=== PATIENT | female | born 1940 | race Caucasian/White ===

== ENCOUNTER → 2017-09-14 | Outpatient (CLI) | payer OTHER | END | disposition home or self-care (01) | LOC: C.LABSPEC 17:37 | PROVIDERS: ATTEND Obstetrics & Gynecology | DX: N94.9 Unspecified condition associated with female genital organs and menstrual cycle (principal); R39.9 Unspecified symptoms and signs involving the genitourinary system ==

== ENCOUNTER 2021-12-20 10:12 | Inpatient (IN) ==
[2021-12-20] MEDS ORDERED: SODIUM CHLORIDE 0.9% 500 ML IV STA (10:52)
--- NOTE | 2021-12-20 11:11 | XRay Report ---
XR chest 1V portable CLINICAL HISTORY: Dyspnea. COMPARISON STUDY: No previous studies for comparison. TECHNIQUE: 1 view of the chest FINDINGS: Single frontal view of the chest demonstrates the cardiomediastinal silhouette to be within normal li mits. The lungs are clear of alveolar opacities. There is no evidence for pleural effusion. There is no evidence for vascular congestion. There is no acute osseous pathology. IMPRESSION: 1. No acute cardiopulmonary disease. ACT 112: Negative or not required by law. Electronically signed by: Livan Johnston M.D. 12/20/2021 11:08 AM
[2021-12-20 11:19] LABS: Basophils # (auto) 0.04 K/uL (0-0.2); Basophils % (auto) 0.6 %; Eosinophils # (auto) 0.02 K/uL (0-0.50); Eosinophils % (auto) 0.3 %; Hematocrit (blood only) 33.6 % (34.1-44.9); Hemoglobin 11.5 g/dl (12.0-16.0); Immature Granulocytes # (auto) 0.03 K/uL (0.00-0.02); Immature Granulocytes % (auto) 0.4 %; Lymphocytes % (auto) 14.4 %; Mean Corpuscular Hemoglobin 27.3 pg (25.0-34.0); Mean Corpuscular Hgb Conc 34.2 g/dL (32.0-36.0); Mean Corpuscular Volume 79.8 fL (80.0-100.0); Mean Platelet Volume 10.3 fL (9.4-12.3); Monocytes # (auto) 0.62 K/uL (0.24-0.82); Monocytes % (auto) 8.9 %; Neutrophils # (auto) 5.23 K/uL (1.4-6.5); Neutrophils % (auto) 75.4 %; Platelet Count 319 K/uL (130-400); RDW Coefficient of Variation 12.1 % (11.5-14.5); RDW Standard Deviation 34.6 fL (36.4-46.3); Red Blood Count 4.21 M/uL (3.93-5.22); White Blood Count 6.94 K/ul (4.8-10.8)
[2021-12-20 11:50] LABS: Appearance Urine Clear (Clear); Bacteria Urine Automated 4+ (Negative); Bilirubin Urine Negative (Negative); Blood Urine Negative (Negative); Color Urine Yellow; Epithelial Cell Urine Auto >30 /lpf (0-5); Glucose Urine UA Negative (Negative); Ketones Urine Trace (Negative); Leukocyte Esterase Urine 2+ (Negative); Nitrite Urine Positive (Negative); Protein Urine Negative (Negative); RBC Urine Automated 0-4 /hpf (0-4); Specific Gravity Urine 1.008 (1.000-1.030); Urobilinogen Urine Negative (Negative); pH Urine 6.5 (4.5-7.5)
[2021-12-20 11:56] LABS: Albumin Globulin Ratio 1.4 (0.9-2); Albumin Level 4.2 gm/dl (3.4-5.0); BUN Creatinine Ratio 13.4 (10-20); Bilirubin,Total 0.8 mg/dl (0.2-1.0); Calcium 9.9 mg/dl (8.5-10.1); Creatinine Clr Calc Pharmacy 44.1 ml/min; Est GFR (African American) 77.8 ml/min; Est GFR (Non-African American) 67.1 ml/min; Magnesium 1.7 mg/dl (1.7-2.4); Potassium 3.6 mmol/L (3.5-5.1); Total Protein 7.2 gm/dl (6.0-8.3)
[2021-12-20 12:01] LABS: Troponin I High Sensitivity 10.8 pg/ml (0-14)
[2021-12-20] MEDS ORDERED: cefTRIAXone SODIUM 2,000 MG/70 ML BAG IV STA (12:21)
--- NOTE | 2021-12-20 13:07 | History & Physical Report ---
Date of Service December 20, 2021 Assessment & Plan (1) Hyponatremia: Plan: This is an 81-year-old female with PMH of renovascular hypertension, dyslipidemia, neuropathy and other medical problems as below who presents with fatigue, generalized weakness and nausea for the past 4 days and was found to have hyponatremia and UTI. Sodium of 121 on admission -> improved to 124 after 500ml NSS given in ED Recent OP labwork with NA of 127 in late November and Lyrica was discontinued with hopes of improvement Poor PO intake per family with lack of appetite and 3 6oz glasses of water daily Hypotonic, hypovolemic hyponatremia - serum osm 259, urine osm 245, urine sodium pending Discussed with Dr. Gomez of nephrology, recommends NSS @ 75ml/hr and repeat BMP at 1900 Daily BMP. Goal correction of Na to 127 in first 24hr (2) Urinary tract infection: Plan: UA abnormal. Continue empiric Rocephin. Follow urine cultures (3) Shortness of breath: Plan: ? In setting of hyponatremia, infection. Oxygen saturation 100% on room air. CXR normal. No tachycardia or tachypnea recorded. Will order D-dimer, follow- up with CTA for PE evaluation if elevated (4) Renovascular hypertension: Plan: Given missed dose of lisinopril. Continue to monitor with goal BP less than 140/90 (5) Neuropathy: Plan: Previously on Lyrica and Cymbalta, but both have been discontinued due to side effects DVT Ppx: SQ Lovenox Code status: FULL PCP: Jeremy Dispo: Admitted to PCU Patient seen in collaboration with Dr. Baer. Please see addendum. Plan Attending Addendum: care coordinated with DOROTA Eastman please refer to her notes for full details, I agree with her notes patient seen and examined, records reviewed by myself as well on exam, patient seen resting in bed, states she feels weak, has some mild dyspnea no other symptoms VS noted and reviewed oriented x3, not in distress, speaks in sentences with no effort nor accessory muscle use normal rate, regular rhythm, no murmurs clear breath sounds bilaterally non distended, soft, nontender no bipedal edema, erythema, warmth no neuro deficits All labs noted and imagings reviewed ASSESSMENT AND PLAN Hyponatremia, likely hypovolemic from poor intake Sodium 121 Serum osmolality, urine osmolality and urine sodium ordered Analog Ic Design Engineer consulted IV NSS ordered Shortness of breath Saturating well on room air, clear breath sounds bilaterally, chest x-ray: No acute process D-dimer 1160 CT angio ordered to rule out PE other diagnoses and plan of care as per DOROTA Eastman's notes Homar Baer MD History of Present Illness Chief Complaint: Malaise Primary Care Provider: Woodrow Luna DO This is an 81-year-old female with PMH of renovascular hypertension, dyslipidemia, neuropathy and other medical problems as below who presents with fatigue, generalized weakness and nausea for the past 4 days. Patient was seen at the end of November with sodium found to be 127 and Lyrica was discontinued with the hopes that it would improve. Patient was then started on Cymbalta for neuropathy but developed nausea, lack of appetite and rash 4 days ago and has felt sick ever since. Patient stopped taking medication. Rash has resolved but patient continues to have decreased appetite with poor p.o. intake at home, per and son at bedside. Patient reportedly drinking about 3 glasses of water per day. Also endorsing shortness of breath that does not seem to be worse with exertion. Denies any fever or chills. No congestion, headache, chest pain, palpitations, wheezing, vomiting, abdominal pain, dysuria, diarrhea or constipation. Allergies Allergy/AdvReac Type Severity Reaction Status Date / Time ciprofloxacin [From Cipro] Allergy Weakness Verified 12/20/21 11:12 duloxetine Allergy Rash Verified 12/20/21 11:12 sulfamethoxazole Allergy Weakness Verified 12/20/21 11:12 [From Bactrim] trimethoprim [From Bactrim] Allergy Weakness Verified 12/20/21 11:12 Home Medications Medication Instructions Recorded Confirmed Type capsaicin 0.1 % topical cream 1 applic topical BID 12/20/21 12/20/21 History dicyclomine 10 mg capsule 10 mg PO QID PRN Abdominal 12/20/21 12/20/21 History Discomfort dorzolamide 22.3 mg-timolol 6.8 1 drp ophthalmic (eye) [facility] 12/20/21 12/20/21 History mg/mL eye drops furosemide 20 mg tablet 20 mg PO DAILY PRN Edema 12/20/21 12/20/21 History lisinopril 10 mg tablet 10 mg PO DAILY 12/20/21 12/20/21 History omeprazole 20 mg capsule,delayed 20 mg PO DAILY 12/20/21 12/20/21 History release zinc 25 mg tablet 25 mg PO DAILY 12/20/21 12/20/21 History Past Med/Surg History Medical History (Updated 12/20/21 @ 16:54 by Tato Gomez MD) Dyslipidemia Neuropathy Prediabetes Renovascular hypertension Surgical History History of tonsillectomy Family History (Updated 12/20/21 @ 15:14 by Winsome Eastman PA-C) Other Heart disease Social History Smoking Status: Former smoker Tobacco Type: Cigarettes Smoking End Date: 1978; Hx Alcohol Use: Yes Alcohol Intake Frequency: Monthly or Less Hx Substance Use: No Preferred Language: German Communication Ability: Effective Senior It Recruiter Required: No Beliefs That Will Affect Care: None Current Living Situation: Spouse Other Information That Helps Us Care for You: No Feels Safe at Home: Yes Safety Concerns: Feels Safe At This Time Assistive Devices: Glasses Review of Systems Review of Systems: At least ten systems reviewed and negative except as noted in the HPI. Physical Exam Physical Exam: General Appearance: WD/WN, vitals as above, NAD, sitting up in bed, anxious Head: normocephalic, atraumatic Eyes: normal inspection, PERRL, conjunctivae normal, anicteric sclerae ENT: external ear and nose normal, dry mucous membranes of oropharynx Neck: normal visual inspection, trachea midline, no thyromegaly Respiratory: normal respiratory effort, lungs clear to auscultation, no wheeze, rales, rhonchi. No accessory muscle use Cardiovascular: regular rate, rhythm, no murmur, normal peripheral pulses, no BLE edema. Vessels: no JVD Chest: normal inspection of chest Abdomen/GI: normal bowel sounds, soft, nontender, no hepatosplenomegaly Extremities/Musculoskeletal: no cyanosis or clubbing, extremities motor streng th 09/10 Neurologic: PERRL, EOMI, accommodation nl, no face palsy, no dysarthria, CN's II-XI intact bilaterally and moves all extremities Psychiatric: A+Ox3, anxious Skin: no rashes, normal color, warm/dry Results & Data Results & Data ([place]) Vital Signs (Past 12 Hours) Vital Signs Temp Pulse Pulse Resp BP BP Pulse Ox 12/20/21 12:30 82 18 167/98 H 99 12/20/21 11:34 81 20 182/88 H 98 12/20/21 10:52 99 12/20/21 10:52 12/20/21 10:38 74 20 181/107 H 99 12/20/21 10:37 99 12/20/21 10:20 36.9 C 76 24 166/88 H 97 O2 Del Method 12/20/21 12:30 Room Air 12/20/21 11:34 Room Air 12/20/21 10:52 Room Air 12/20/21 10:52 Room Air 12/20/21 10:38 Room Air 12/20/21 10:37 Room Air 12/20/21 10:20 Room Air Laboratory Results Short CBC 12/20/21 Range/Units 10:49 WBC 6.94 (4.8-10.8) K/ul Hgb 11.5 L (12.0-16.0) g/dl Hct 33.6 L (34.1-44.9) % Plt Count 319 (130-400) K/uL BMP 12/20/21 12/20/21 10:49 14:48 Sodium 121 L 124 L Potassium 3.6 3.4 L Chloride 89 L 92 L Carbon Dioxide 24 23 BUN 11 8 Creatinine 0.82 0.65 Glucose 136 H 112 H Calcium 9.9 9.2 Liver Function 12/20/21 Range/Units 10:49 Total Bilirubin 0.8 (0.2-1.0) mg/dl AST 13 (13-39) U/L ALT 5 L (7-52) U/L Alkaline Phosphatase 86 (34-104) U/L Albumin 4.2 (3.4-5.0) gm/dl Urine 12/20/21 Range/Units 11:32 Urine Color Yellow Urine Appearance Clear (Clear) Urine pH 6.5 (4.5-7.5) Ur Specific Kathleen 1.008 (1.000-1.030) Urine Protein Negative (Negative) Urine Glucose (UA) Negative (Negative) Diagnostic Findings Chest X-Ray 12/20/21 10:52 XR chest 1V portable CLINICAL HISTORY: Dyspnea. COMPARISON STUDY: No previous studies for comparison. TECHNIQUE: 1 view of the chest FINDINGS: Single frontal view of the chest demonstrates the cardiomediastinal silhouette to be within normal limits. The lungs are clear of alveolar opacities. There is no evidence for pleural effusion. There is no evidence for vascular congestion. There is no acute osseous pathology. IMPRESSION: 1. No acute cardiopulmonary disease. ACT 112: Negative or not required by law. Electronically signed by: Livan Johnston M.D. 12/20/2021 11:08 AM Code Status & VTE Plan VTE Prophylaxis Plan VTE Prophylaxis will be ordered: Yes
--- NOTE | 2021-12-20 13:44 | Electrocardiogram Report ---
Test Reason : Blood Pressure : / mmHG Vent. Rate : 073 BPM Atrial Rate : 073 BPM P-R Int : 138 ms QRS Dur : 088 ms QT Int : 340 ms P-R-T Axes : 054 -15 047 degrees QTc Int : 374 ms Poor data quality, interpretation may be adversely affected Normal sinus rhythm Possible Left atrial enlargement Left ventricular hypertrophy with repolarization abnormality Abnormal ECG No previous ECGs available Confirmed by Elier Gama ([id number]) on 12/20/2021 1:44:38 PM Referred By: REFERRED SELF Confirmed By:Elier Gama
[2021-12-20 15:14] LABS: BUN Creatinine Ratio 12.3 (10-20); Calcium 9.2 mg/dl (8.5-10.1); Creatinine Clr Calc Pharmacy 55.7 ml/min; Est GFR (African American) 96.5 ml/min; Est GFR (Non-African American) 83.3 ml/min; Potassium 3.4 mmol/L (3.5-5.1)
[2021-12-20] MEDS ORDERED: DICYCLOMINE HCL 10 MG CAP PO PRN (15:20)
[2021-12-20] MEDS ORDERED: POTASSIUM CHLORIDE CRTAB 20 MEQ TABCR PO STA (15:28)
[2021-12-20] MEDS ORDERED: SODIUM CHLORIDE 0.9% 1000ML 1,000 ML IV SCH (15:30)
[2021-12-20] MEDS ORDERED: ONDANSETRON INJ 2 MG/ML 2 ML VIAL IV PRN (15:49)
[2021-12-20] MEDS ORDERED: POLYETHYLENE (MIRALAX) 17 GM PACK PO PRN (15:49)
[2021-12-20] MEDS ORDERED: lisinopril 10 MG TAB PO ONE (16:41)
--- NOTE | 2021-12-20 16:54 | Emergency Department Note ---
Impression & Plan Hyponatremia, Urinary tract infection, Shortness of breath ED Provider Note INFORMANT: Patient and family ED PROVIDER(S): Tato Gomez MD CHIEF COMPLAINT: Shortness of breath and weakness PLAN: Disposition: Admitted Condition: Good Outpatient prescription management: none Referral: None patient present because of shortness of breath and weakness. A work-up was initiated. The patient was found MEDICAL DECISION MAKING: To have a normal sinus rhythm on ECG. Chest x-ray did not reveal any acute findings. Her CBC was unremarkable but chemistry panel was very concerning for hyponatremia. Urinalysis was very concerning for infection. Patient was hydrated with normal saline. She was given IV Rocephin. Further management in the hospital will be necessary. [facility] Patient was evaluated in the ER admitted. Triage Nursing notes reviewed and agree them. Vital Signs: reviewed and remarkable for no significant abnormalities Differential diagnosis: Infection, dehydration, metabolic abnormality, hypo/hyperglycemia, electrolyte disturbance, anemia, hypoxia, cardiac sources, intracerebral event, toxicologic, neurologic, as well as other pathologies. Diagnostics interpreted by me: ECG: Twelve-lead ECG reveals normal sinus rhythm at 73 beats minute left atrial margin. LVH. No ST elevation or depression. No PVCs. Cardiac Monitoring: Cardiac monitoring ordered by me: The patient was placed on continuous cardiac monitoring and observed. It revealed a normal sinus rhythm at 80 beats per minute without ectopy or evidence of dysrhythmia. Imaging studies: Chest x-ray. Findings: A chest x-ray was performed and revealed no pneumothorax, effusion, infiltrate, pulmonary edema, free air under the diaphragm, or wide mediastinum. Impression: No acute disease. HPI: The patient is a 81 year old female who presents to the Emergency Room with complaints of weakness and shortness of breath. This started over the last 3 days and is persisting and worsening. The patient also notes the following associated symptoms, fatigue. The patient has found no relieving factors. Current pain is rated as 0/10. patient noted that last week she started Cymbalta and the first day she took it she developed a rash. She has not taken it since. Pt denies LOC, headache, fevers, chills, diaphoresis, visual changes, neck pain, chest pain, breathing difficulties, nausea, vomiting, abdominal pain, back pain, melena, hematochezia, numbness, lymphadenopathy, or other complaints. ROS: See above HPI for pertinent positives & negatives. A total of 10 systems reviewed and were otherwise negative. PAST MEDICAL HISTORY:See Below , neuropathy PAST SURGICAL HISTORY:See Below, FAMILY HISTORY:See Below SOCIAL HISTORY:See Below, retired HOME MEDICATIONS:See Below ALLERGIES:See Below VITALS:See Below PHYSICAL EXAMINATION: GENERAL: Awake, tired appearing, in no distress HENT: Normocephalic, atraumatic. Oropharynx unremarkable. EYES: Normal conjunctiva. Sclera non-icteric. PERRLA. EOMI. NECK: Inspection normal. Non-tender. Supple. No nuchal rigidity. FROM. No masses. RESPIRATORY: Clear to auscultation. No wheezes. No rales. Normal respiratory effort. CARDIAC: Normal rate. Normal rhythm. No murmurs. No rubs. Extremities warm and well perfused. Pulses equal. No JVD. GI: Soft, non-distended. No tenderness to palpation. No rebound or guarding. No masses. RECTAL: Deferred. MUSCULOSKELETAL: Atraumatic. Chest examination reveals no tenderness. The back is symmetrical on inspection without obvious abnormality. There is no CVA tenderness to palpation. No joint edema. LOWER EXTREMITIES: Calves are equal size bilaterally and non-tender. No edema. No discoloration. NEURO: Normal sensorium. Generally weak but no focal sensory or motor deficits noted. SKIN: No rash or jaundice noted. Tato Gomez MD Past Med/Surg History Medical History (Updated 12/20/21 @ 16:54 by Tato Gomez MD) Dyslipidemia Neuropathy Prediabetes Renovascular hypertension Surgical History History of tonsillectomy Family History (Updated 12/20/21 @ 15:14 by Winsome Eastman PA-C) Other Heart disease Social History Smoking Status: Former smoker Tobacco Type: Cigarettes Smoking End Date: 1978; Hx Alcohol Use: Yes Alcohol Intake Frequency: Monthly or Less Hx Substance Use: No Preferred Language: Kazakh Communication Ability: Effective Construction Coordinator Required: No Beliefs That Will Affect Care: None Current Living Situation: Spouse Other Information That Helps Us Care for You: No Feels Safe at Home: Yes Safety Concerns: Feels Safe At This Time Assistive Devices: Glasses Allergies Allergies Allergy/AdvReac Type Severity Reaction Status Date / Time ciprofloxacin [From Cipro] Allergy Weakness Verified 12/20/21 11:12 duloxetine Allergy Rash Verified 12/20/21 11:12 sulfamethoxazole Allergy Weakness Verified 12/20/21 11:12 [From Bactrim] trimethoprim [From Bactrim] Allergy Weakness Verified 12/20/21 11:12 Home Meds Home Medications Medication Instructions Recorded Confirmed capsaicin 0.1 % topical cream 1 applic topical BID 12/20/21 12/20/21 dicyclomine 10 mg capsule 10 mg PO QID PRN Abdominal 12/20/21 12/20/21 Discomfort dorzolamide 22.3 mg-timolol 6.8 1 drp ophthalmic (eye) [facility] 12/20/21 12/20/21 mg/mL eye drops furosemide 20 mg tablet 20 mg PO DAILY PRN Edema 12/20/21 12/20/21 lisinopril 10 mg tablet 10 mg PO DAILY 12/20/21 12/20/21 omeprazole 20 mg capsule,delayed 20 mg PO DAILY 12/20/21 12/20/21 release zinc 25 mg tablet 25 mg PO DAILY 12/20/21 12/20/21 Results & Data (ED) Vital Signs Vital Signs - 24 hr 12/20/21 10:20 12/20/21 10:37 12/20/21 10:38 Temperature 36.9 C Temperature Source Temporal Artery Scan Pulse Rate 76 Pulse Rate [Apical] 74 Respiratory Rate 24 20 Respiratory Effort / Characteristics Non-Labored Spontaneous Respiratory Depth Normal Respiratory Pattern Blood Pressure 166/88 H Blood Pressure [Right Arm] 181/107 H Blood Pressure Mean 114 Blood Pressure Mean [Right Arm] 131 Blood Pressure Position [Right Arm] Lying Pulse Oximetry 97 99 99 Oxygen Delivery Method Room Air Room Air Room Air Sepsis Recent Fever Within 48 Hours No Sepsis New/Unexplained Change in Mental Status N/A Sepsis Action Taken by Nursing No Action Required 12/20/21 10:52 12/20/21 10:52 12/20/21 11:34 Temperature Temperature Source Pulse Rate Pulse Rate [Apical] 81 Respiratory Rate 20 Respiratory Effort / Characteristics Non-Labored Spontaneous SOB on Exertion Non-Labored Spontaneous Respiratory Depth Normal Normal Respiratory Pattern Regular Blood Pressure Blood Pressure [Right Arm] 182/88 H Blood Pressure Mean Blood Pressure Mean [Right Arm] 119 Blood Pressure Position [Right Arm] Lying Pulse Oximetry 99 98 Oxygen Delivery Method Room Air Room Air Room Air Sepsis Recent Fever Within 48 Hours Sepsis New/Unexplained Change in Mental Status Sepsis Action Taken by Nursing 12/20/21 12:30 Temperature Temperature Source Pulse Rate Pulse Rate [Apical] 82 Respiratory Rate 18 Respiratory Effort / Characteristics Non-Labored Spontaneous Respiratory Depth Normal Respiratory Pattern Blood Pressure Blood Pressure [Right Arm] 167/98 H Blood Pressure Mean Blood Pressure Mean [Right Arm] 121 Blood Pressure Position [Right Arm] Lying Pulse Oximetry 99 Oxygen Delivery Method Room Air Sepsis Recent Fever Within 48 Hours Sepsis New/Unexplained Change in Mental Status Sepsis Action Taken by Nursing Laboratory Data Result diagrams: 12/20/21 10:49 12/20/21 14:48 Lab Results 12/20/21 12/20/21 12/20/21 Range/Units 10:49 10:49 10:49 WBC 6.94 (4.8-10.8) K/ul RBC 4.21 (3.93-5.22) M/uL Hgb 11.5 L (12.0-16.0) g/dl Hct 33.6 L (34.1-44.9) % MCV 79.8 L (80.0-100.0) fL MCH 27.3 (25.0-34.0) pg MCHC 34.2 (32.0-36.0) g/dL RDW Std Deviation 34.6 L (36.4-46.3) fL RDW Coeff of Eileen 12.1 (11.5-14.5) % Plt Count 319 (130-400) K/uL MPV 10.3 (9.4-12.3) fL Immature Gran % (Auto) 0.4 % Neut % (Auto) 75.4 % Lymph % (Auto) 14.4 % Kendall % (Auto) 8.9 % Eos % (Auto) 0.3 % Baso % (Auto) 0.6 % Neut # (Auto) 5.23 (1.4-6.5) K/uL Lymph # (Auto) 1.00 L (1.2-3.4) K/uL Kendall # (Auto) 0.62 (0.24-0.82) K/uL Eos # (Auto) 0.02 (0-0.50) K/uL Baso # (Auto) 0.04 (0-0.2) K/uL Immature Gran # (Auto) 0.03 H (0.00-0.02) K/uL Sodium 121 L (136-145) mmol/L Potassium 3.6 (3.5-5.1) mmol/L Chloride 89 L (98-107) mmol/L Carbon Dioxide 24 (21-32) mmol/L Anion Gap 8 (3-11) BUN 11 (6-23) mg/dl Creatinine 0.82 (0.6-1.2) mg/dl Est Cr Clr Drug Dosing 44.1 ml/min Est GFR ( Amer) 77.8 ml/min Est GFR (Non-Af Amer) 67.1 ml/min BUN/Creatinine Ratio 13.4 (10-20) Glucose 136 H (70-99(Fasting)) mg/dl Osmolality 259 L (280-300) mOsm/kg Calcium 9.9 (8.5-10.1) mg/dl Magnesium 1.7 (1.7-2.4) mg/dl Total Bilirubin 0.8 (0.2-1.0) mg/dl AST 13 (13-39) U/L ALT 5 L (7-52) U/L Alkaline Phosphatase 86 (34-104) U/L Troponin I High Sens 10.8 (0-14) pg/ml B-Natriuretic Peptide (0-100) pg/ml Total Protein 7.2 (6.0-8.3) gm/dl Albumin 4.2 (3.4-5.0) gm/dl Globulin 3.0 (2.5-4.0) gm/dl Albumin/Globulin Ratio 1.4 (0.9-2) Urine Color Urine Appearance (Clear) Urine pH (4.5-7.5) Ur Specific [place] (1.000-1.030) Urine Protein (Negative) Urine Glucose (UA) (Negative) Urine Ketones (Negative) Urine Blood (Negative) Urine Nitrite (Negative) Urine Bilirubin (Negative) Urine Urobilinogen (Negative) Ur Leukocyte Esterase (Negative) Urine WBC (Auto) (0-5) /hpf Urine RBC (Auto) (0-4) /hpf U Hyaline Cast (Auto) (0-5) /lpf U Epithel Cells (Auto) (0-5) /lpf Urine Bacteria (Auto) (Negative) Urine Osmolality (500-800) mOsm/kg SARS-CoV-2, RNA, NAAT (NEGATIVE) 12/20/21 12/20/21 12/20/21 Range/Units 11:06 11:32 11:32 WBC (4.8-10.8) K/ul RBC (3.93-5.22) M/uL Hgb (12.0-16.0) g/dl Hct (34.1-44.9) % MCV (80.0-100.0) fL MCH (25.0-34.0) pg MCHC (32.0-36.0) g/dL RDW Std Deviation (36.4-46.3) fL RDW Coeff of Eileen (11.5-14.5) % Plt Count (130-400) K/uL MPV (9.4-12.3) fL Immature Gran % (Auto) % Neut % (Auto) % Lymph % (Auto) % Kendall % (Auto) % Eos % (Auto) % Baso % (Auto) % Neut # (Auto) (1.4-6.5) K/uL Lymph # (Auto) (1.2-3.4) K/uL Kendall # (Auto) (0.24-0.82) K/uL Eos # (Auto) (0-0.50) K/uL Baso # (Auto) (0-0.2) K/uL Immature Gran # (Auto) (0.00-0.02) K/uL Sodium (136-145) mmol/L Potassium (3.5-5.1) mmol/L Chloride (98-107) mmol/L Carbon Dioxide (21-32) mmol/L Anion Gap (3-11) BUN (6-23) mg/dl Creatinine (0.6-1.2) mg/dl Est Cr Clr Drug Dosing ml/min Est GFR ( Amer) ml/min Est GFR (Non-Af Amer) ml/min BUN/Creatinine Ratio (10-20) Glucose (70-99(Fasting)) mg/dl Osmolality (280-300) mOsm/kg Calcium (8.5-10.1) mg/dl Magnesium (1.7-2.4) mg/dl Total Bilirubin (0.2-1.0) mg/dl AST (13-39) U/L ALT (7-52) U/L Alkaline Phosphatase (34-104) U/L Troponin I High Sens (0-14) pg/ml B-Natriuretic Peptide 129 H (0-100) pg/ml Total Protein (6.0-8.3) gm/dl Albumin (3.4-5.0) gm/dl Globulin (2.5-4.0) gm/dl Albumin/Globulin Ratio (0.9-2) Urine Color Yellow Urine Appearance Clear (Clear) Urine pH 6.5 (4.5-7.5) Ur Specific [place] 1.008 (1.000-1.030) Urine Protein Negative (Negative) Urine Glucose (UA) Negative (Negative) Urine Ketones Trace H (Negative) Urine Blood Negative (Negative) Urine Nitrite Positive A (Negative) Urine Bilirubin Negative (Negative) Urine Urobilinogen Negative (Negative) Ur Leukocyte Esterase 2+ H (Negative) Urine WBC (Auto) 5-10 H (0-5) /hpf Urine RBC (Auto) 0-4 (0-4) /hpf U Hyaline Cast (Auto) 1-5 (0-5) /lpf U Epithel Cells (Auto) >30 H (0-5) /lpf Urine Bacteria (Auto) 4+ H (Negative) Urine Osmolality 245 L (500-800) mOsm/kg SARS-CoV-2, RNA, NAAT (NEGATIVE) 12/20/21 Range/Units 12:30 WBC (4.8-10.8) K/ul RBC (3.93-5.22) M/uL Hgb (12.0-16.0) g/dl Hct (34.1-44.9) % MCV (80.0-100.0) fL MCH (25.0-34.0) pg MCHC (32.0-36.0) g/dL RDW Std Deviation (36.4-46.3) fL RDW Coeff of Eileen (11.5-14.5) % Plt Count (130-400) K/uL MPV (9.4-12.3) fL Immature Gran % (Auto) % Neut % (Auto) % Lymph % (Auto) % Kendall % (Auto) % Eos % (Auto) % Baso % (Auto) % Neut # (Auto) (1.4-6.5) K/uL Lymph # (Auto) (1.2-3.4) K/uL Kendall # (Auto) (0.24-0.82) K/uL Eos # (Auto) (0-0.50) K/uL Baso # (Auto) (0-0.2) K/uL Immature Gran # (Auto) (0.00-0.02) K/uL Sodium (136-145) mmol/L Potassium (3.5-5.1) mmol/L Chloride (98-107) mmol/L Carbon Dioxide (21-32) mmol/L Anion Gap (3-11) BUN (6-23) mg/dl Creatinine (0.6-1.2) mg/dl Est Cr Clr Drug Dosing ml/min Est GFR ( Amer) ml/min Est GFR (Non-Af Amer) ml/min BUN/Creatinine Ratio (10-20) Glucose (70-99(Fasting)) mg/dl Osmolality (280-300) mOsm/kg Calcium (8.5-10.1) mg/dl Magnesium (1.7-2.4) mg/dl Total Bilirubin (0.2-1.0) mg/dl AST (13-39) U/L ALT (7-52) U/L Alkaline Phosphatase (34-104) U/L Troponin I High Sens (0-14) pg/ml B-Natriuretic Peptide (0-100) pg/ml Total Protein (6.0-8.3) gm/dl Albumin (3.4-5.0) gm/dl Globulin (2.5-4.0) gm/dl Albumin/Globulin Ratio (0.9-2) Urine Color Urine Appearance (Clear) Urine pH (4.5-7.5) Ur Specific [place] (1.000-1.030) Urine Protein (Negative) Urine Glucose (UA) (Negative) Urine Ketones (Negative) Urine Blood (Negative) Urine Nitrite (Negative) Urine Bilirubin (Negative) Urine Urobilinogen (Negative) Ur Leukocyte Esterase (Negative) Urine WBC (Auto) (0-5) /hpf Urine RBC (Auto) (0-4) /hpf U Hyaline Cast (Auto) (0-5) /lpf U Epithel Cells (Auto) (0-5) /lpf Urine Bacteria (Auto) (Negative) Urine Osmolality (500-800) mOsm/kg SARS-CoV-2, RNA, NAAT NEGATIVE (NEGATIVE) Administered Medications Sodium Chloride (Nss 1000ml) 1,000 mls @ 75 mls/hr IV .[id number] DESIRE Stop: 01/19/22 15:29 Last Admin: 12/20/21 16:18 Dose: 75 mls/hr Documented By: MS Discontinued Medications Sodium Chloride (Nss) 500 mls @ 999 mls/hr IV .Q31M STA Stop: 12/20/21 11:22 Last Infusion: 12/20/21 11:43 Dose: 0 mls/hr Documented By: Admin: 12/20/21 11:05 Dose: 999 mls/hr Documented By: NMS Ceftriaxone Sodium (Rocephin) 2,000 mg in 70 mls @ 140 mls/hr IV NOW STA Stop: 12/20/21 12:50 Last Infusion: 12/20/21 13:01 Dose: 0 mls/hr Documented By: Admin: 12/20/21 12:31 Dose: 140 mls/hr Documented By: NMS Potassium Chloride (Potassium Chloride Crtab 20 Meq Tabcr) 40 meq PO NOW STA Stop: 12/20/21 15:29 Last Admin: 12/20/21 16:18 Dose: 40 meq Documented By: MS Imaging Data Radiologist's Impression: Chest X-Ray 12/20/21 10:52 XR chest 1V portable CLINICAL HISTORY: Dyspnea. COMPARISON STUDY: No previous studies for comparison. TECHNIQUE: 1 view of the chest FINDINGS: Single frontal view of the chest demonstrates the cardiomediastinal silhouette t o be within normal limits. The lungs are clear of alveolar opacities. There is no evidence for pleural effusion. There is no evidence for vascular congestion. There is no acute osseous pathology. IMPRESSION: 1. No acute cardiopulmonary disease. ACT 112: Negative or not required by law. Electronically signed by: Livan Johnston M.D. 12/20/2021 11:08 AM Discharge Plan Visit Data Chief Complaint: Shortness of Breath/Dyspnea Stated Complaint: SOB, PAIN IN LEGS, REACTION TO MEDS ED Provider: Tato Gomez Discharge Problem: Hyponatremia, Urinary tract infection, Shortness of breath Patient Disposition: Admitted As Inpatient Discharge Instructions Interventions: ED Discharge Assessment Last Done: 12/20/21 14:43
--- NOTE | 2021-12-20 17:39 | Consultation Report ---
NEPHROLOGY CONSULTATION NOTE DATE OF SERVICE: 12/20/2021. REASON FOR CONSULTATION: Hyponatremia. HISTORY OF PRESENT ILLNESS: The patient is an 81-year-old female who presented to the [facility] today because of feeling very weak, poor appetite, some nausea and onset of rash a few days ago. She blames all of her symptoms to recent start of duloxetine; however, she has only taken 1 pill 4 da ys ago. She had a completely normal sodium up until 09/2021 based on the outpatient lab record. She had an outpatient visit on 12/02/2021 and on that day, she had a sodium of 127. This was before the start of duloxetine. At that point, she was on Lyrica, which was subsequently tapered off. She miner s take Lasix 20 mg most of the days on a daily basis, but she has been on this for more than a year. She was not having any actual vomiting, diarrhea, fever or chills. There was not any extra lower ex tremity edema than usual. She did complain of being very weak and short of breath. Chest x-ray and BNP are unremarkable. Blood work at the time of admission was 121. She received about a liter of no rmal saline and with that serum sodium has gone up to 124. Her creatinine is completely normal at 0.6 , BUN is 8. As per the patient, her son and her for the last 3-4 days, she has only been eat ing little bit of crackers with soup. She still was trying to drink more liquid, but even that was n ot significant. PAST MEDICAL AND SURGICAL HISTORY: Includes history of renovascular hypertension, dyslipidemia, patti pheral neuropathy, prediabetes, hysterectomy, tonsillectomy. FAMILY HISTORY: Negative for renal disease or dialysis. SOCIAL HISTORY: Former smoker, quit smoking in 1978. Very occasional alcohol. She is and l juan david with her . REVIEW OF SYSTEMS: As detailed in HPI; unless stated otherwise, 12 systems reviewed and negative. MEDICATION LIST: At home was reviewed in detail and is as per the reconciliation list and H and P. ALLERGIES: List reviewed. PHYSICAL EXAMINATION: GENERAL: Elderly white female who appears to be weak and tired, but she is awake, alert, oriented x3 and was able to give me a detailed account of her medical history including medication. VITAL SIGNS: Blood pressure 161/107, pulse rate 82, temperature 36.9, and 97% on room air. HEENT: Mucous membranes are moist. NECK: Supple. No jugular venous distention. CHEST: Bilaterally clear to auscultation. CARDIOVASCULAR: S1 and S2, regular. ABDOMEN: Soft, nontender. EXTREMITIES: Show no edema. NEUROLOGIC: Awake, alert, oriented x3, normal speech. Moving all 4 extremities. LABORATORY TEST: Urine osmolality 245. Urinalysis shows nitrite positive, ketone trace, some WBCs a nd epithelial cells. Specific gravity is 1.008, sodium completely normal in 09/2021, was 127 on 11/07. On admission earlier today was 121. Most recent just now was 124, BUN 8, creatinine 0.65, po tassium 3.4. BNP 129. Chest x-ray unremarkable. Albumin normal at 4.2. ASSESSMENT AND PLAN: An 81-year-old female admitted with multiple nonspecific symptoms and was found to have hyponatremia, for which I have been consulted. Hyponatremia: Based on outpatient records, she had completely normal sodium up until 09/2021. [facility] er, she was starting to have drop in her sodium even on the outpatient blood work done 12/02/2021. T he patient likes to think all of her symptoms including the low sodium is related with duloxetine; ho wever, she has only taken 1 pill of duloxetine just few days ago. Her appetite has been very poor an d she has barely eaten anything solid or anything with protein, so it is quite possible this is what we commonly call as tea and toast diet with a very low osmolar diet causing hyponatremia. She could also be somewhat volume depleted and as a result, we did see a rise in the sodium from 121-124 in abo ut 4-hour time period with the use of normal saline. Urine osmolality is somewhat inappropriately hi gh and is consistent with a low osmolar diet. For the time being, I will do BMP again in about 4-lisa r time. For the time being, I would continue with the normal saline. Depending on the rate of rise of sodium on the coming blood work, we can further decide about the type and the rate of the fluid. Nephrology cotton bag clipper can be contacted. I would hold duloxetine for the time being as well as Lasix. Jaun guy will continue to follow the patient. Job ID: [id number]
[2021-12-20] MEDS: ENOXAPARIN INJ 40 MG/0.4 ML SYR SQ SCH (18:02)
[2021-12-20 19:40] LABS: BUN Creatinine Ratio 13.6 (10-20); Calcium 9.1 mg/dl (8.5-10.1); Creatinine Clr Calc Pharmacy 55.3 ml/min; Est GFR (Non-African American) 82.8 ml/min
[2021-12-20 19:48] LABS: D Dimer 1160 ug/L FEU (0-500)
[2021-12-20 20:48] LABS: Lyme Ab IgG w/WB Rflx Negative (Negative); Lyme Ab IgM w/WB Rflx Negative (Negative)
[2021-12-20] MEDS ORDERED: CAPSAICIN 0.1% TOP SCH (21:00)
[2021-12-20] MEDS: DORZOLAMIDE/TIMOLOL 22.3/6.8MG/ML 10 ML BTL OP SCH (21:20)
[2021-12-20] MEDS ORDERED: OPTIRAY 300 500mL IV ONE (21:34)
[2021-12-20] MEDS: UREA (UREA-NA) 15 GM PACK PO SCH (22:12)
[2021-12-21 07:24] LABS: Hematocrit (blood only) 30.6 % (34.1-44.9); Hemoglobin 10.2 g/dl (12.0-16.0); Mean Corpuscular Hgb Conc 33.3 g/dL (32.0-36.0); Mean Platelet Volume 10.1 fL (9.4-12.3); Platelet Count 296 K/uL (130-400); RDW Coefficient of Variation 12.3 % (11.5-14.5); RDW Standard Deviation 35.9 fL (36.4-46.3); Red Blood Count 3.78 M/uL (3.93-5.22); White Blood Count 8.84 K/ul (4.8-10.8)
[2021-12-21 07:45] LABS: BUN Creatinine Ratio 35.8 (10-20); Calcium 9.3 mg/dl (8.5-10.1); Creatinine Clr Calc Pharmacy 53.8 ml/min; Est GFR (African American) 95.5 ml/min; Est GFR (Non-African American) 82.4 ml/min; Potassium 4.1 mmol/L (3.5-5.1)
[2021-12-21] MEDS: UREA (UREA-NA) 15 GM PACK PO SCH ×2 (08:00→20:04)
[2021-12-21] MEDS: PANTOprazole 40 MG TAB PO SCH (08:00)
[2021-12-21] MEDS: DORZOLAMIDE/TIMOLOL 22.3/6.8MG/ML 10 ML BTL OP SCH ×2 (08:00→20:03)
[2021-12-21] MEDS: cefTRIAXone SODIUM 1,000 MG in DEXTROSE 5% 50 ML IV SCH (08:07)
[2021-12-21] MEDS ORDERED: lisinopril 10 MG TAB PO SCH (09:00)
[2021-12-21] MEDS ORDERED: NON-FORMULARY MEDICATION (Zinc 25 mg Tablet) PO SCH (09:00)
--- NOTE | 2021-12-21 09:06 | Nephrology Progress Note ---
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 However, she was starting to have drop in her sodium even on the outpatient blood work done 12/02/2021. The patient likes to think all of her symptoms including the low sodium is related with duloxetine; however, she has only taken 1 pill of duloxetine just few days prior to admission. Her appetite has been very poor and she has barely eaten anything solid or anything with protein, so it is quite possible this is what we commonly call as tea and toast diet with a very low osmolar diet causing hyponatremia. she thinks she's lost weight but wt stable at about 130 lb in OP clinic since 2014 or more. -stopped urea -cont 1.5L FR -gave 20 mg IV lasix x 1 with 20 mEq po K and ordered recheck bmp 1600 >L> sNa 123, K 4.1 >> had second dose of IV lasix 20 mg after this -recheck bmp in AM, sooner if issues overnight -ordered repeat sodium studies for am -recommend swallow evaluation >> speech to see pt; defer to Dr Reinoso for further f/u / eval of this -some risk for NUNU w/ IV lasix, recent IV contrast > monitor labs closely; aCEI held for am pending labs Admission and Anticipated Discharge Date Admission Date: December 20, 2021 Subjective seen at 1645 w/ family at bedside; pt struggling to finish small meal > tells me has no trouble chewing but trouble swallowing; family reports her appetite has been poor x months; they are unsure if she's lost weight. no sob, no n/v though did have N w/ urea and asks it be d/c; no voiding concerns, no diarrhea; no edema Review of Systems Review of Systems: All systems reviewed & are unremarkable except as noted in Subjective Physical Exam Constitutional: well developed and well nourished Eyes: EOM intact bilaterally ENMT: Ears: no external ear abnormality Nose: no external nose abnormality Mouth: + dry oral mucous membranes Neck: no nuchal rigidity Respiratory: normal respiratory effort and able to speak in complete sentences; no labored breathing Auscultation: + diminished lung sounds markedly lordotic/kyphotic spine Cardiovascular: RRR, no murmur, no edema Gastrointestinal (Abdomen): Inspection/Auscultation: normal bowel sounds Percussion/Palpation: abdomen soft; abdomen nontender Musculoskeletal: Extremities: strength 5/5 throughout Skin: no rashes, warm and dry Neurologic: hernández, fluent speech, no tremor Psychiatric: Orientation: oriented x 3 Results & Data ([facility]) Vital Signs (Past 12 Hours) Vital Signs Temp Pulse Pulse Resp BP Pulse Ox O2 Del Method 12/21/21 08:00 37.0 C 77 20 132/62 97 12/21/21 07:00 83 12/21/21 04:08 36.9 C 78 18 142/66 H 95 Room Air 12/20/21 23:39 36.9 C 82 16 144/64 H 96 Room Air 12/20/21 23:46 81 Laboratory Results 12/21/21 07:02 12/21/21 07:[address] Angio 12/20 Thyroid: The thyroid gland is enlarged and heterogeneous fibroglandular. Thoracic aorta: There is atherosclerotic calcification of the thoracic aorta, which is normal in caliber and demonstrates standard 3-vessel arch anatomy. No dissection is seen. Pulmonary vasculature: The pulmonary trunk is normal in caliber. Apparent linear filling defect within the left upper lobe pulmonary artery seen on image #177 is likely artifact. There are no filling defects identified in main, lobar, or proximal segmental pulmonary branches typical for pulmonary embolus. Evaluation of the peripheral vessels is compromised by motion artifact. Heart: The heart is top normal in size and without pericardial effusion. The coronary arteries are densely calcified. Lungs and pleural spaces: Evaluation of the lung parenchyma is degraded by motion artifact PA there is no airspace consolidation typical for pneumonia or pleural effusion. The trachea and central airways are clear. Mediastinum: There is no mediastinal lymphadenopathy. The examination is compromised by motion artifact. Dilcia: Clear. Axillae: There is no axillary lymphadenopathy. Upper abdomen: There is a large calcified gallstone. Diverticula are noted in the partially imaged left colon. Skeletal structures: The skeletal structures are osteopenic. Degenerative change and kyphoscoliosis is noted in the thoracic spine. No lytic or blastic bony lesions are seen. IMPRESSION: 1 Motion compromised examination. 2. There is no evidence of pulmonary embolus in the main, lobar, or proximal segmental pulmonary arteries. Evaluation of the peripheral branches is com promised by motion artifact. 3. There is no airspace consolidation or pleural effusion. 4. Cholelithiasis. 5. Additional findings as above.
[2021-12-21] MEDS ORDERED: POTASSIUM CHLORIDE CRTAB 20 MEQ TABCR PO ONE (09:15)
[2021-12-21] MEDS ORDERED: FUROSEMIDE INJ 20 MG/2 ML VIAL IV ONE ×2 (09:15→18:02)
--- NOTE | 2021-12-21 09:53 | CT Scan Report ---
CT ANGIOGRAM OF THE CHEST CLINICAL HISTORY: Dyspnea. COMPARISON STUDY: Chest x-ray dated 12/20/2021. TECHNIQUE: Following the IV administration of 115 cc of Optiray 320, CT angiogram of the chest was pe rformed from the upper abdomen to the thoracic inlet utilizing the pulmonary embolus protocol. Images are reviewed in the axial, sagittal, and coronal planes. 3-D MIPS images are created and assessed. I V contrast was administered without complication. A dose lowering technique was utilized adhering to the principles of ALARA. The examination is compromised by motion artifact. CT DOSE: 400.52 mGy.cm FINDINGS: Thyroid: The thyroid gland is enlarged and heterogeneous fibroglandular. Thoracic aorta: There is atherosclerotic calcification of the thoracic aorta, which is normal in tomasa florentin and demonstrates standard 3-vessel arch anatomy. No dissection is seen. Pulmonary vasculature: The pulmonary trunk is normal in caliber. Apparent linear filling defect withi n the left upper lobe pulmonary artery seen on image #177 is likely artifact. There are no filling de fects identified in main, lobar, or proximal segmental pulmonary branches typical for pulmonary embol us. Evaluation of the peripheral vessels is compromised by motion artifact. Heart: The heart is top normal in size and without pericardial effusion. The coronary arteries are de nsely calcified. Lungs and pleural spaces: Evaluation of the lung parenchyma is degraded by motion artifact PA there i s no airspace consolidation typical for pneumonia or pleural effusion. The trachea and central airway s are clear. Mediastinum: There is no mediastinal lymphadenopathy. The examination is compromised by motion artifact. Dilcia: Clear. Axillae: There is no axillary lymphadenopathy. Upper abdomen: There is a large calcified gallstone. Diverticula are noted in the partially imaged le ft colon. Skeletal structures: The skeletal structures are osteopenic. Degenerative change and kyphoscoliosis i s noted in the thoracic spine. No lytic or blastic bony lesions are seen. IMPRESSION: 1 Motion compromised examination. 2. There is no evidence of pulmonary embolus in the main, lobar, or proximal segmental pulmonary aleks kristen. Evaluation of the peripheral branches is compromised by motion artifact. 3. There is no airspace consolidation or pleural effusion. 4. Cholelithiasis. 5. Additional findings as above. ACT 112: Negative or not required by law. Electronically signed by: Walt Weir M.D. 12/21/2021 9:52 AM
--- NOTE | 2021-12-21 14:56 | Hospitalist Progress Note ---
Date of Service December 21, 2021 Assessment & Plan (1) Hyponatremia: Plan: Patient is an 81 yr female with H/O Renovascular hypertension, dyslipidemia, neuropathy and other medical problems as below who presents with fatigue, generalized weakness and nausea for the past 4 days and was found to have hyponatremia and UTI. Hyponatremia Likely SIADH Poor oral intake And less likely from duloxetine Continue fluid restriction Received IV Lasix X 1 Appreciate nephrology input Monitor sodium level: 121>>125 Encourage increased food/protein in diet Also on Urea (2) Urinary tract infection: Plan: Urine culture growing E. coli Continue Rocephin (3) Shortness of breath: Plan: Elevated D dimer --CTA:Motion compromised examination. There is no evidence of pulmonary embolus in the main, lobar, or proximal segmental pulmonary arteries. Evaluation of the peripheral branches is compromised by motion artifact. There is no airspace consolidation or pleural effusion. Cholelithiasis. --No dyspnea currently -- Saturating well on room air (4) Renovascular hypertension: Plan: BP slightly elevated Continue lisinopril (5) Neuropathy: Plan: Previously on Lyrica and Cymbalta, but both have been discontinued due to side effects Hold duloxetine--Plan to DC upon discharge as well as developed rash Fibronodular thyroid Incidental finding on CT CT scan showed enlarged and heterogeneous fibroglandular Check TSH, Free T4 Needs further eval as outpatient DVT Px: SQ Lovenox Code status: FULL CODE Admission and Anticipated Discharge Date Admission Date: December 20, 2021 Subjective Patient is seen and examined at bedside States feeling tired and has generalized weakness Rash resolved Admits to having very poor appetite Denies any dysuria, hematuria, increased urinary frequency, abdominal pain, ch est pain, dizziness Offers no other complaints Review of Systems Review of Systems: All systems reviewed & are unremarkable except as noted in Subjective Physical Exam Physical Exam: Physical Exam: Vitals signs as noted above General Appearance:Moderately built and nourished, no apparent distress Head: normocephalic, Atraumatic Eyes: normal inspection, EOMI Neck: supple, Trachea midline Respiratory/Chest: Normal breath sounds, CTA, No accessory muscle use Cardiovascular: S1, S2, No murmur Abdomen/GI:Soft, Non tender, Bowel sounds present Extremities/Musculoskeletal:normal inspection, no edema Neurologic/Psych:AAOX3, grossly no focal neurological deficits Skin: normal color, warm Results & Data Results & Data ([facility]) Vital Signs (Past 12 Hours) Vital Signs Temp Pulse Pulse Resp BP Pulse Ox O2 Del Method 12/21/21 11:00 36.8 C 87 20 154/70 H 97 12/21/21 08:00 37.0 C 77 20 132/62 97 12/21/21 07:00 83 12/21/21 04:08 36.9 C 78 18 142/66 H 95 Room Air Laboratory Results Short CBC 12/21/21 Range/Units 07:02 WBC 8.84 (4.8-10.8) K/ul Hgb 10.2 L (12.0-16.0) g/dl Hct 30.6 L (34.1-44.9) % Plt Count 296 (130-400) K/uL BMP 12/20/21 12/20/21 12/21/21 14:48 19:09 07:02 Sodium 124 L 123 L 125 L Potassium 3.4 L 4.0 4.1 Chloride 92 L 93 L 93 L Carbon Dioxide 23 23 25 BUN 8 9 24 H Creatinine 0.65 0.66 0.67 Glucose 112 H 114 H 103 H Calcium 9.2 9.1 9.3
[2021-12-21] MEDS: ENOXAPARIN INJ 40 MG/0.4 ML SYR SQ SCH (17:49)
[2021-12-21 18:16] LABS: BUN Creatinine Ratio 26.1 (10-20); Calcium 9.5 mg/dl (8.5-10.1); Creatinine Clr Calc Pharmacy 40.9 ml/min; Est GFR (African American) 71.4 ml/min; Est GFR (Non-African American) 61.6 ml/min; Potassium 4.1 mmol/L (3.5-5.1)
[2021-12-22] MEDS: cefTRIAXone SODIUM 1,000 MG in DEXTROSE 5% 50 ML IV SCH (08:42)
[2021-12-22 08:43] LABS: Hematocrit (blood only) 33.2 % (34.1-44.9); Hemoglobin 11.2 g/dl (12.0-16.0); Mean Corpuscular Hgb Conc 33.7 g/dL (32.0-36.0); Platelet Count 339 K/uL (130-400); RDW Coefficient of Variation 12.4 % (11.5-14.5); Red Blood Count 4.15 M/uL (3.93-5.22); White Blood Count 8.82 K/ul (4.8-10.8)
[2021-12-22] MEDS: DORZOLAMIDE/TIMOLOL 22.3/6.8MG/ML 10 ML BTL OP SCH ×2 (08:43→20:49)
[2021-12-22 09:04] LABS: BUN Creatinine Ratio 28.2 (10-20); Calcium 9.8 mg/dl (8.5-10.1); Creatinine Clr Calc Pharmacy 42.3 ml/min; Est GFR (African American) 74.5 ml/min; Est GFR (Non-African American) 64.3 ml/min; Potassium 4.1 mmol/L (3.5-5.1)
[2021-12-22] MEDS: PANTOprazole 40 MG TAB PO SCH (09:22)
--- NOTE | 2021-12-22 11:05 | XRay Report ---
XR chest 1V portable HISTORY: Shortness of breath. COMPARISON: Chest 12/20/2021. FINDINGS: No pneumothorax. No pleural effusions. Moderate S-shaped scoliosis of the thoracolumbar spi ne again noted. Calcifications within the aortic knob. The heart is borderline enlarged. This remains unchanged. No new focal lung consolidations to suggest pneumonia. No evidence for pulmonary edema. A dvanced degenerative changes within the right shoulder. IMPRESSION: No significant change compared to the prior study. No acute process. ACT 112: Negative or not required by law. Electronically signed by: Curtis Alcantar M.D. 12/22/2021 11:03 AM
--- NOTE | 2021-12-22 14:44 | Nephrology Progress Note ---
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 However, she was starting to have drop in her sodium even on the outpatient blood work done 12/02/2021. The patient likes to think all of her symptoms including the low sodium is related with duloxetine; however, she has only taken 1 pill of duloxetine just few days prior to admission. Her appetite has been very poor and she has barely eaten anything solid or anything with protein, so it is quite possible this is what we commonly call as tea and toast diet with a very low osmolar diet causing hyponatremia. she thinks she's lost weight but wt stable at about 130 lb in OP clinic since 2014 or more. swallow eval by speech unremarkable -stopped urea since she did not tolerate -cont 1.5L FR >had 2 doses lasix w/ small improvement -hold lisinopril to continue >>now will start lasix 20 mg IV q 4h with NS at 80 ml/hr; NS w/ K 40 mEq/ L -recheck bmp in AM, sooner if issues overnight -ordered repeat sodium studies for 12/22 > repeat labs c/w SIADH -continue to work w/ program attendant to tempt her to eat higher solute diet > more protein; even more intake of sodium ok (already on regular diet Admission and Anticipated Discharge Date Admission Date: December 20, 2021 Subjective no acute interval events; some urinary incontinence w/ lasix; no sob, no n/v, no edema. still w/ lower appetite. speech saw pt and recommends minced/moist w/ aspiration precautions; pt w/ mild oral stage dysphagia and no overt aspiration; seems like link to decreased po is poor appetite, not mechanical issues Review of Systems Review of Systems: All systems reviewed & are unremarkable except as noted in Subjective Physical Exam Constitutional: well developed and well nourished Eyes: EOM intact bilaterally ENMT: Ears: no external ear abnormality Nose: no external nose abnormality Mouth: + dry oral mucous membranes Neck: no nuchal rigidity Respiratory: normal respiratory effort and able to speak in complete sentences; no labored breathing Auscultation: + diminished lung sounds lordotic spine Cardiovascular: RRR, no murmur, no edema Gastrointestinal (Abdomen): Inspection/Auscultation: normal bowel sounds Percussion/Palpation: abdomen soft; abdomen nontender Musculoskeletal: Extremities: strength 5/5 throughout Skin: no rashes, warm and dry Neurologic: hernández, fluent speech, no tremor; mild generalized weakness Psychiatric: Orientation: oriented x 3 Results & Data ([facility]) Vital Signs (Past 12 Hours) Vital Signs Temp Pulse Pulse Resp BP Pulse Ox O2 Del Method 12/22/21 11:53 36.8 C 85 20 102/68 97 Room Air 12/22/21 07:35 Room Air 12/22/21 07:55 37.1 C 81 18 156/81 H 96 Room Air 12/22/21 07:00 79 12/22/21 03:56 36.8 C 79 18 123/77 96 Room Air Laboratory Results 12/22/21 08:18 12/22/21 08:18
[2021-12-22] MEDS: ENOXAPARIN INJ 40 MG/0.4 ML SYR SQ SCH (15:43)
[2021-12-22] MEDS: POTASSIUM CHLORIDE 40 MEQ in SODIUM CHLORIDE 0.9% 1000ML 1,000 ML IV SCH (15:44)
[2021-12-22] MEDS: FUROSEMIDE INJ 20 MG/2 ML VIAL IV SCH ×3 (15:47→23:36)
--- NOTE | 2021-12-22 17:19 | Hospitalist Progress Note ---
Date of Service December 22, 2021 Assessment & Plan (1) Hyponatremia: Plan: Patient is an 81 yr female with H/O Renovascular hypertension, dyslipidemia, neuropathy and other medical problems as below who presents with fatigue, generalized weakness and nausea for the past 4 days and was found to have hyponatremia and UTI. Hyponatremia ? SIADH Poor oral intake And less likely from duloxetine Continue fluid restriction Received IV Lasix X 1 Appreciate nephrology input Monitor sodium level: 121>125>126 Encourage increased food/protein in diet Urea discontinued IV fluids per Nephrology (2) Urinary tract infection: Plan: Urine culture growing E. coli Continue Rocephin (3) Shortness of breath: Plan: Elevated D dimer --CTA:Motion compromised examination. There is no evidence of pulmonary embolus in the main, lobar, or proximal segmental pulmonary arteries. Evaluation of the peripheral branches is compromised by motion artifact. There is no airspace consolidation or pleural effusion. Cholelithiasis. --No dyspnea currently -- Saturating well on room air (4) Renovascular hypertension: Plan: BP stable Held lisinopril (5) Neuropathy: Plan: Previously on Lyrica and Cymbalta, but both have been discontinued due to side effects Hold duloxetine--Plan to DC upon discharge as well as developed rash Fibronodular thyroid Incidental finding on CT CT scan showed enlarged and heterogeneous fibroglandular Check TSH, Free T4 Needs further eval as outpatient DVT Px: SQ Lovenox Code status: FULL CODE Admission and Anticipated Discharge Date Admission Date: December 20, 2021 Subjective Patient is seen and examined at bedside Reports minimal dyspnea, seemed to be anxious: reassurance given Tolerating diet Sodium 126 today Appetite better today per patient Denies any dysuria, hematuria, increased urinary frequency, abdominal pain, chest pain, dizziness Review of Systems Review of Systems: All systems reviewed & are unremarkable except as noted in Subjective Physical Exam Physical Exam: Physical Exam: Vitals signs as noted above General Appearance:Moderately built and nourished, no apparent distress Head: normocephalic, Atraumatic Eyes: normal inspection, EOMI Neck: supple, Trachea midline Respiratory/Chest: Normal breath sounds, CTA, No accessory muscle use Cardiovascular: S1, S2, No murmur Abdomen/GI:Soft, Non tender, Bowel sounds present Extremities/Musculoskeletal:normal inspection, no edema Neurologic/Psych:AAOX3, grossly no focal neurological deficits Skin: normal color, warm Results & Data Results & Data ([facility]) Vital Signs (Past 12 Hours) Vital Signs Temp Pulse Pulse Resp BP Pulse Ox O2 Del Method 12/22/21 17:00 83 12/22/21 15:23 36.9 C 76 18 120/69 95 Room Air 12/22/21 11:53 36.8 C 85 20 102/68 97 Room Air 12/22/21 07:35 Room Air 12/22/21 07:55 37.1 C 81 18 156/81 H 96 Room Air 12/22/21 07:00 79 Laboratory Results Short CBC 12/22/21 Range/Units 08:18 WBC 8.82 (4.8-10.8) K/ul Hgb 11.2 L (12.0-16.0) g/dl Hct 33.2 L (34.1-44.9) % Plt Count 339 (130-400) K/uL BMP 12/21/21 12/22/21 17:27 08:18 Sodium 123 L 126 L Potassium 4.1 4.1 Chloride 91 L 91 L Carbon Dioxide 22 25 BUN 23 24 H Creatinine 0.88 0.85 Glucose 166 H 124 H Calcium 9.5 9.8
[2021-12-23] MEDS: POTASSIUM CHLORIDE 40 MEQ in SODIUM CHLORIDE 0.9% 1000ML 1,000 ML IV SCH ×2 (03:49→15:59)
[2021-12-23] MEDS: FUROSEMIDE INJ 20 MG/2 ML VIAL IV SCH ×5 (03:49→19:48)
[2021-12-23 07:39] LABS: Hematocrit (blood only) 33.2 % (34.1-44.9); Hemoglobin 11.1 g/dl (12.0-16.0); Mean Corpuscular Hemoglobin 26.8 pg (25.0-34.0); Mean Corpuscular Hgb Conc 33.4 g/dL (32.0-36.0); Mean Corpuscular Volume 80.2 fL (80.0-100.0); Mean Platelet Volume 10.4 fL (9.4-12.3); Platelet Count 352 K/uL (130-400); RDW Standard Deviation 37.6 fL (36.4-46.3); Red Blood Count 4.14 M/uL (3.93-5.22); White Blood Count 9.32 K/ul (4.8-10.8)
[2021-12-23 08:04] LABS: BUN Creatinine Ratio 31.1 (10-20); Calcium 9.7 mg/dl (8.5-10.1); Est GFR (African American) 69.5 ml/min; Potassium 4.3 mmol/L (3.5-5.1)
[2021-12-23] MEDS: DORZOLAMIDE/TIMOLOL 22.3/6.8MG/ML 10 ML BTL OP SCH ×2 (08:39→19:48)
[2021-12-23] MEDS: PANTOprazole 40 MG TAB PO SCH (08:40)
[2021-12-23] MEDS: cefTRIAXone SODIUM 1,000 MG in DEXTROSE 5% 50 ML IV SCH (08:46)
--- NOTE | 2021-12-23 12:04 | Hospitalist Progress Note ---
Date of Service December 23, 2021 Assessment & Plan (1) Hyponatremia: Plan: Patient is an 81 yr female with H/O Renovascular hypertension, dyslipidemia, neuropathy and other medical problems as below who presents with fatigue, generalized weakness and nausea for the past 4 days and was found to have hyponatremia and UTI. Hyponatremia Being managed by nephro- attributed to SIADH with low solute diet Monitor sodium level: 121>125>126->130 Encourage increased food/protein in diet- continue to work with dietitian for higher solute diet Urea discontinued due to intolerance On iv lasix per nephro (2) Urinary tract infection: Plan: Urine culture growing E. coli, pansensitive S/p rocephin. Will change to macrobid. (3) Shortness of breath: Plan: Elevated D dimer --CTA:Motion compromised examination. There is no evidence of pulmonary embolus in the main, lobar, or proximal segmental pulmonary arteries. Evaluation of the peripheral branches is compromised by motion artifact. There is no airspace consolidation or pleural effusion. Cholelithiasis. --No dyspnea currently -- Saturating well on room air (4) Renovascular hypertension: Plan: BP stable Held lisinopril (5) Neuropathy: Plan: Previously on Lyrica and Cymbalta, but both have been discontinued due to side effects Hold duloxetine--Plan to DC upon discharge as well as developed rash Fibronodular thyroid Incidental finding on CT CT scan showed enlarged and heterogeneous fibroglandular TSH normal Needs further eval as outpatient- Recommend follow up with PCP with possible endo referral DVT Px: SQ Lovenox Dispo: Per nephro- once hyponatremia corrected and stabilizes. Seen by PT 12/22- home vs rehab. Admission and Anticipated Discharge Date Admission Date: December 20, 2021 Subjective Feels weak otherwise no issues. No fever, chills, chest pain, shortness of breath, N/V. Physical Exam Physical Exam: General: Lying comfortably in bed, not in distress, on room air HEENT: EOMI, LOUIE, MMM Chest: Clear breath sounds bilaterally, no wheezes or crackles CVS: Regular rate and rhythm, normal heart sounds, no murmur Abdomen: Soft, non tender, not distended, normal bowel sounds Neuro: Awake, alert, oriented, conversing well, non focal Extremities: No edema Results & Data Results & Data ([facility]) Vital Signs (Past 12 Hours) Vital Signs Temp Pulse Pulse Resp BP Pulse Ox O2 Del Method 12/23/21 11:48 36.4 C L 65 16 138/77 96 Room Air 12/23/21 09:57 76 12/23/21 07:57 36.9 C 73 18 126/67 96 Room Air 12/23/21 04:00 37.1 C 77 20 130/63 95 Room Air Laboratory Results Short CBC 12/23/21 Range/Units 06:06 WBC 9.32 (4.8-10.8) K/ul Hgb 11.1 L (12.0-16.0) g/dl Hct 33.2 L (34.1-44.9) % Plt Count 352 (130-400) K/uL BMP 12/23/21 06:06 Sodium 130 L Potassium 4.3 Chloride 95 L Carbon Dioxide 26 BUN 28 H Creatinine 0.90 Glucose 117 H Calcium 9.7 Medications Administered Current Inpatient Medications Acetaminophen (Acetaminophen 325 Mg Tab) 650 mg PO Q4H PRN PRN Reason: Pain or Fever Stop: 01/19/22 15:48 Dicyclomine HCl (Dicyclomine Hcl 10 Mg Cap) 10 mg PO QID PRN PRN Reason: Abdominal Discomfort Stop: 01/19/22 15:19 Dorzolamide/Timolol (Dorzolamide/Timolol 22.3/6.8mg/Ml 10 Ml Btl) 1 drops OP [facility] DESIRE Stop: 01/19/22 20:59 Last Admin: 12/23/21 08:39 Dose: 1 drops Enoxaparin Sodium (Enoxaparin Inj 40 Mg/0.4 Ml Syr) 40 mg SQ Q24H DESIRE Stop: 01/19/22 15:59 Last Admin: 12/22/21 15:43 Dose: 40 mg Furosemide (Furosemide Inj 20 Mg/2 Ml Vial) 10 mg IV Q4 DESIRE Stop: 01/21/22 15:59 Last Admin: 12/23/21 11:59 Dose: 10 mg Ceftriaxone Sodium 1,000 mg/ (Dextrose) 60 mls @ 100 mls/hr IV DAILY DESIRE; Protocol Stop: 12/26/21 08:59 Last Infusion: 12/23/21 09:25 Dose: Infused Potassium Chloride 40 meq/ (Sodium Chloride) 1,020 mls @ 80 mls/hr IV .[id number] [facility] Stop: 01/21/22 14:44 Last Admin: 12/23/21 03:49 Dose: 80 mls/hr Lisinopril (Lisinopril 10 Mg Tab) 10 mg PO DAILY [facility] Stop: 01/20/22 08:59 Last Admin: 12/21/21 08:00 Dose: 10 mg Ondansetron HCl (Ondansetron Inj 2 Mg/Ml 2 Ml Vial) 4 mg IV Q6H PRN PRN Reason: Nausea Stop: 01/19/22 15:48 Pantoprazole Sodium (Pantoprazole 40 Mg Tab) 40 mg PO DAILY [facility]; Protocol Stop: 01/20/22 08:59 Last Admin: 12/23/21 08:40 Dose: 40 mg Polyethylene Glycol (Polyethylene (Miralax) 17 Gm Pack) 17 gm PO DAILY PRN PRN Reason: Constipation Stop: 01/19/22 15:48
[2021-12-23] MEDS: ENOXAPARIN INJ 40 MG/0.4 ML SYR SQ SCH (16:03)
--- NOTE | 2021-12-23 17:31 | Nephrology Progress Note ---
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 However, she was starting to have drop in her sodium even on the outpatient blood work done 12/02/2021. The patient likes to think all of her symptoms including the low sodium is related with duloxetine; however, she has only taken 1 pill of duloxetine just few days prior to admission. Her appetite has been very poor and she has barely eaten anything solid or anything with protein, so it is quite possible this is what we commonly call as tea and toast diet with a very low osmolar diet causing hyponatremia. she thinks she's lost weight but wt stable at about 130 lb in OP clinic since 2014 or more. swallow eval by speech unremarkable -stopped urea since she did not tolerate -cont 1.5L FR >had 2 doses lasix w/ small improvement; ordered repeat sodium studies for 12/22 > repeat labs c/w SIADH -hold lisinopril to continue >>cont lasix 20 mg IV q 4h with NS at 80 ml/hr; NS w/ K 40 mEq/ L -recheck bmp in AM, sooner if issues overnight -continue to work w/ striker out to tempt her to eat higher solute diet > more protein; even more intake of sodium ok (already on regular diet Admission and Anticipated Discharge Date Admission Date: December 20, 2021 Subjective no acute interval events. eating best she can a bit more she thinks; no sob, n o n/v; no edema Review of Systems Review of Systems: All systems reviewed & are unremarkable except as noted in Subjective Physical Exam Constitutional: well developed and well nourished Eyes: EOM intact bilaterally ENMT: Ears: no external ear abnormality Nose: no external nose abnormality Mouth: + dry oral mucous membranes Neck: no nuchal rigidity Respiratory: normal respiratory effort and able to speak in complete sent ences; no labored breathing Auscultation: + diminished lung sounds Cardiovascular: RRR, no murmur, no edema Gastrointestinal (Abdomen): Inspection/Auscultation: normal bowel sounds Percussion/Palpation: abdomen soft; abdomen nontender Musculoskeletal: Extremities: strength 5/5 throughout Skin: no rashes, warm and dry Neurologic: hernández, fluent speech, no tremor Psychiatric: Orientation: oriented x 3 Results & Data ([facility]) Vital Signs (Past 12 Hours) Vital Signs Temp Pulse Pulse Pulse Resp BP Pulse Ox 12/23/21 16:07 12/23/21 15:03 37.1 C 97 H 19 120/68 97 12/23/21 14:52 60 12/23/21 11:48 36.4 C L 65 16 138/77 96 12/23/21 09:57 76 12/23/21 07:57 36.9 C 73 18 126/67 96 O2 Del Method 12/23/21 16:07 Room Air 12/23/21 15:03 Room Air 12/23/21 14:52 12/23/21 11:48 Room Air 12/23/21 09:57 12/23/21 07:57 Room Air Laboratory Results 12/23/21 06:06 12/23/21 06:06
[2021-12-23] MEDS: NITROFURANTOIN MONOHYDRATE 100 MG CAP PO SCH (20:59)
[2021-12-24] MEDS: FUROSEMIDE INJ 20 MG/2 ML VIAL IV SCH ×5 (00:27→16:31)
[2021-12-24] MEDS: POTASSIUM CHLORIDE 40 MEQ in SODIUM CHLORIDE 0.9% 1000ML 1,000 ML IV SCH (04:13)
[2021-12-24 07:26] LABS: BUN Creatinine Ratio 33.3 (10-20); Calcium 9.5 mg/dl (8.5-10.1); Creatinine Clr Calc Pharmacy 40.1 ml/min; Est GFR (African American) 69.5 ml/min; Magnesium 2.1 mg/dl (1.7-2.4); Phosphorus 3.8 mg/dl (2.5-4.9); Potassium 4.5 mmol/L (3.5-5.1)
[2021-12-24] MEDS: DORZOLAMIDE/TIMOLOL 22.3/6.8MG/ML 10 ML BTL OP SCH ×2 (08:27→20:04)
[2021-12-24] MEDS: PANTOprazole 40 MG TAB PO SCH (08:30)
[2021-12-24] MEDS: NITROFURANTOIN MONOHYDRATE 100 MG CAP PO SCH ×2 (10:50→20:04)
[2021-12-24] MEDS ORDERED: COVID-19 VACC, TRIS(PFIZER)/PF 30 MCG/0.3 ML VIAL IM ONE (11:32)
--- NOTE | 2021-12-24 11:37 | Hospitalist Progress Note ---
Date of Service December 24, 2021 Assessment & Plan (1) Hyponatremia: Plan: Patient is an 81 yr female with H/O Renovascular hypertension, dyslipidemia, neuropathy and other medical problems as below who presents with fatigue, generalized weakness and nausea for the past 4 days and was found to have hyponatremia and UTI. Hyponatremia- resolved Being managed by nephro- attributed to SIADH with low solute diet Monitor sodium level: 121>125>126->130->135 Encourage increased food/protein in diet- continue to work with dietitian for higher solute diet Urea discontinued due to intolerance On iv lasix per nephro (2) Urinary tract infection: Plan: Urine culture growing E. coli, pansensitive S/p rocephin and changed to macrobid 12/23. (3) Shortness of breath: Plan: Elevated D dimer --CTA:Motion compromised examination. There is no evidence of pulmonary embolus in the main, lobar, or proximal segmental pulmonary arteries. Evaluation of the peripheral branches is compromised by motion artifact. There is no airspace consolidation or pleural effusion. Cholelithiasis. --No dyspnea currently -- Saturating well on room air (4) Renovascular hypertension: Plan: BP stable Held lisinopril (5) Neuropathy: Plan: Previously on Lyrica and Cymbalta, but both have been discontinued due to side effects Hold duloxetine--Plan to DC upon discharge as well as developed rash Fibronodular thyroid Incidental finding on CT CT scan showed enlarged and heterogeneous fibroglandular TSH normal Needs further eval as outpatient- Recommend follow up with PCP with possible endo referral DVT Px: SQ Lovenox Dispo: Plan for discharge to [facility] tomorrow. ordered covid booster shot as requested. Medically stable. Admission and Anticipated Discharge Date Admission Date: December 20, 2021 Subjective She feels good. denies any issues. She was enquiring about the sodium level. She states she is either going to [facility] or home. No fever, chills, chest pain, shortness of breath, N/V. Physical Exam Physical Exam: General: Lying comfortably in bed, not in distress, on room air HEENT: EOMI, LOUIE, MMM Chest: Clear breath sounds bilaterally, no wheezes or crackles CVS: Regular rate and rhythm, normal heart sounds, no murmur Abdomen: Soft, non tender, not distended, normal bowel sounds Neuro: Awake, alert, oriented, conversing well, non focal Extremities: No edema Results & Data Results & Data ([facility]) Vital Signs (Past 12 Hours) Vital Signs Temp Pulse Pulse Resp BP Pulse Ox O2 Del Method 12/24/21 11:02 36.6 C 67 18 113/75 96 Room Air 12/24/21 08:17 69 12/24/21 08:09 36.6 C 82 18 142/80 H 96 Room Air 12/24/21 04:00 63 20 Laboratory Results [facility] 12/24/21 06:39 Sodium 135 L Potassium 4.5 Chloride 100 Carbon Dioxide 28 BUN 30 H Creatinine 0.90 Glucose 118 H Calcium 9.5 Medications Administered Current Inpatient Medications Acetaminophen (Acetaminophen 325 Mg Tab) 650 mg PO Q4H PRN PRN Reason: Pain or Fever Stop: 01/19/22 15:48 COVID-19 Vaccine mRNA LNP-S (PFR) (PF) (Covid-19 Vacc, Roberto(Pfizer)/Pf 30 Mcg/0.3 Ml Vial) 0.3 ml IM .ONCE ONE Stop: 12/24/21 11:33 Dicyclomine HCl (Dicyclomine Hcl 10 Mg Cap) 10 mg PO QID PRN PRN Reason: Abdominal Discomfort Stop: 01/19/22 15:19 Dorzolamide/Timolol (Dorzolamide/Timolol 22.3/6.8mg/Ml 10 Ml Btl) 1 drops OP [facility] DESIRE Stop: 01/19/22 20:59 Last Admin: 12/24/21 08:27 Dose: 1 drops Enoxaparin Sodium (Enoxaparin Inj 40 Mg/0.4 Ml Syr) 40 mg SQ Q24H DESIRE Stop: 01/19/22 15:59 Last Admin: 12/23/21 16:03 Dose: 40 mg Furosemide (Furosemide Inj 20 Mg/2 Ml Vial) 10 mg IV Q4 DESIRE Stop: 01/21/22 15:59 Last Admin: 12/24/21 08:27 Dose: 10 mg Potassium Chloride 40 meq/ (Sodium Chloride) 1,020 mls @ 80 mls/hr IV .[id number] DESIRE Stop: 01/21/22 14:44 Last Admin: 12/24/21 04:13 Dose: 80 mls/hr Lisinopril (Lisinopril 10 Mg Tab) 10 mg PO DAILY [facility] Stop: 01/20/22 08:59 Last Admin: 12/21/21 08:00 Dose: 10 mg Nitrofurantoin Macrocrystals (Nitrofurantoin Monohydrate 100 Mg Cap) 100 mg PO BID [facility] Stop: 12/28/21 20:59 Last Admin: 12/24/21 10:50 Dose: 100 mg Ondansetron HCl (Ondansetron Inj 2 Mg/Ml 2 Ml Vial) 4 mg IV Q6H PRN PRN Reason: Nausea Stop: 01/19/22 15:48 Pantoprazole Sodium (Pantoprazole 40 Mg Tab) 40 mg PO DAILY [facility]; Protocol Stop: 01/20/22 08:59 Last Admin: 12/24/21 08:30 Dose: 40 mg Polyethylene Glycol (Polyethylene (Miralax) 17 Gm Pack) 17 gm PO DAILY PRN PRN Reason: Constipation Stop: 01/19/22 15:48
[2021-12-24] MEDS: ACETAMINOPHEN 325 MG TAB PO PRN ×2 (12:22→17:35)
--- NOTE | 2021-12-24 16:10 | Nephrology Progress Note ---
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 However, she was starting to have drop in her sodium even on the outpatient blood work done 12/02/2021. The patient likes to think all of her symptoms including the low sodium is related with duloxetine; however, she has only taken 1 pill of duloxetine just few days prior to admission. Her appetite has been very poor and she has barely eaten anything solid or anything with protein, so it is quite possible this is what we commonly call as tea and toast diet with a very low osmolar diet causing hyponatremia. she thinks she's lost weight but wt stable at about 130 lb in OP clinic since 2014 or more. swallow eval by speech unremarkable -stopped urea since she did not tolerate -cont 1.5L FR >had 2 doses lasix w/ small improvement; ordered repeat sodium studies for 12/22 > repeat labs c/w SIADH -hold lisinopril to continue -recheck bmp in AM, sooner if issues overnight -continue to work w/ investigation clerk to tempt her to eat higher solute diet > more protein; even more intake of sodium ok (already on regular diet) -stopped IVF; changed lasix IV 10 mg qid for tomorrow to torsemide 10 mg daily w/ K 20 mEq po daily Admission and Anticipated Discharge Date Admission Date: December 20, 2021 Subjective no interval clinical events; no sob, no n/v, no edema, no uncontrolled pain. still struggling to find food that appeals to her and to eat. Review of Systems Review of Systems: All systems reviewed & are unremarkable except as noted in Subjective Physical Exam Constitutional: well developed (up in chair on RA) and well nourished Eyes: EOM intact bilaterally ENMT: Ears: no external ear abnormality Nose: no external nose abnormality Mouth: + dry oral mucous membranes Neck: no nuchal rigidity Respiratory: normal respiratory effort and able to speak in complete sent ences; no labored breathing Auscultation: + diminished lung sounds Cardiovascular: RRR, no murmur, no edema Gastrointestinal (Abdomen): Inspection/Auscultation: normal bowel sounds Percussion/Palpation: abdomen soft; abdomen nontender Musculoskeletal: Extremities: strength 5/5 throughout Skin: no rashes, warm and dry Neurologic: hernández fluent speech no tremor Psychiatric: Orientation: oriented x 3 Results & Data ([facility]) Vital Signs (Past 12 Hours) Vital Signs Temp Pulse Pulse Resp BP Pulse Ox O2 Del Method 12/24/21 14:47 69 12/24/21 11:02 36.6 C 67 18 113/75 96 Room Air 12/24/21 08:17 69 12/24/21 08:09 36.6 C 82 18 142/80 H 96 Room Air Laboratory Results 12/23/21 06:06 12/24/21 06:39
[2021-12-24] MEDS: ENOXAPARIN INJ 40 MG/0.4 ML SYR SQ SCH (16:31)
[2021-12-25 07:19] LABS: BUN Creatinine Ratio 38.3 (10-20); Calcium 9.6 mg/dl (8.5-10.1); Creatinine Clr Calc Pharmacy 38.4 ml/min; Est GFR (African American) 65.9 ml/min; Est GFR (Non-African American) 56.9 ml/min; Magnesium 2.2 mg/dl (1.7-2.4); Potassium 4.4 mmol/L (3.5-5.1)
[2021-12-25] MEDS: DORZOLAMIDE/TIMOLOL 22.3/6.8MG/ML 10 ML BTL OP SCH (07:23)
[2021-12-25] MEDS: NITROFURANTOIN MONOHYDRATE 100 MG CAP PO SCH (07:24)
[2021-12-25] MEDS: PANTOprazole 40 MG TAB PO SCH (07:25)
--- NOTE | 2021-12-25 08:12 | Communication Note ---
Date of Service: December 25, 2021 Informed by hospitalist pt for likely d/c today to [facility]. Na appropriate for this. nephro d/c recs (in case she is d/c before I round this afternoon): -do not resume lisinopril at d/c -torsemide 10 mg daily -potassium 20 mEq daily -fluid limit 1.5L daily -encourage protein intake -bmp on 12/29 and weekly x 4 to be ordered by nephro RN/faxed to [facility] -pt needs HOSPITAL DISCHARGE appt pls in about 4 wks w/ [facility] in [facility]
[2021-12-25] MEDS ORDERED: TORSEMIDE 10 MG TAB PO SCH (09:00)
[2021-12-25] MEDS ORDERED: POTASSIUM CHLORIDE CRTAB 20 MEQ TABCR PO SCH (09:00)
--- NOTE | 2021-12-25 10:39 | Discharge Summary ---
Date of Service December 25, 2021 Admission HPI Per Admitting Provider This is an 81-year-old female with PMH of renovascular hypertension, dyslipidemia, neuropathy and other medical problems as below who presents with fatigue, generalized weakness and nausea for the past 4 days. Patient was seen at the end of November with sodium found to be 127 and Lyrica was discontinued with the hopes that it would improve. Patient was then started on Cymbalta for neuropathy but developed nausea, lack of appetite and rash 4 days ago and has felt sick ever since. Patient stopped taking medication. Rash has resolved but patient continues to have decreased appetite with poor p.o. intake at home, per and son at bedside. Patient reportedly drinking about 3 glasses of water per day. Also endorsing shortness of breath that does not seem to be worse with exertion. Denies any fever or chills. No congestion, headache, chest pain, palpitations, wheezing, vomiting, abdominal pain, dysuria, diarrhea or constipation. Admission Exam Per Admitting Provider General Appearance:WD/WN, vitals as above, NAD, sitting up in bed, anxious Head: normocephalic, atraumatic Eyes:normal inspection, PERRL, conjunctivae normal, anicteric sclerae ENT: external ear and nose normal, dry mucous membranes of oropharynx Neck: normal visual inspection, trachea midline, no thyromegaly Respiratory:normal respiratory effort, lungs clear to auscultation, no wheeze, rales, rhonchi. No accessory muscle use Cardiovascular: regular rate, rhythm, no murmur, normal peripheral pulses, no BLE edema. Vessels: no JVD Chest: normal inspection of chest Abdomen/GI: normal bowel sounds, soft, nontender, no hepatosplenomegaly Extremities/Musculoskeletal: no cyanosis or clubbing, extremities motor strength 5/5 Neurologic: PERRL, EOMI, accommodation nl, no face palsy, no dysarthria, CN's II-XI intact bilaterally and moves all extremities Psychiatric:A+Ox3, anxious Skin: no rashes, normal color, warm/dry Principal Diagnosis Hyponatremia, E coli UTI Discharge Exam General: Lying comfortably in bed, not in distress, on room air HEENT: EOMI, LOUIE, MMM Chest: Clear breath sounds bilaterally, no wheezes or crackles CVS: Regular rate and rhythm, normal heart sounds, no murmur Abdomen: Soft, non tender, not distended, normal bowel sounds Neuro: Awake, alert, oriented, conversing well, non focal Extremities: No edema Discharge Data Allergies Allergy/AdvReac Type Severity Reaction Status Date / Time ciprofloxacin [From Cipro] Allergy Weakness Verified 12/20/21 11:12 duloxetine Allergy Rash Verified 12/20/21 11:12 sulfamethoxazole Allergy Weakness Verified 12/20/21 11:12 [From Bactrim] trimethoprim [From Bactrim] Allergy Weakness Verified 12/20/21 11:12 Consultations 12/20/21 12:35 ED Decision to Admit Stat 12/20/21 14:23 Consult Nephrology Routine Ordered Studies 12/20/21 20:18 CT angio chest PE protocol Urgent Laboratory Results WBC 9.32 K/ul (4.8-10.8) 12/23/21 06:06 RBC 4.14 M/uL (3.93-5.22) 12/23/21 06:06 Hgb 11.1 g/dl (12.0-16.0) L 12/23/21 06:06 Hct 33.2 % (34.1-44.9) L 12/23/21 06:06 MCV 80.2 fL (80.0-100.0) 12/23/21 06:06 MCH 26.8 pg (25.0-34.0) 12/23/21 06:06 MCHC 33.4 g/dL (32.0-36.0) 12/23/21 06:06 RDW Std Deviation 37.6 fL (36.4-46.3) 12/23/21 06:06 RDW Coeff of Eileen 13.0 % (11.5-14.5) 12/23/21 06:06 Plt Count 352 K/uL (130-400) 12/23/21 06:06 MPV 10.4 fL (9.4-12.3) 12/23/21 06:06 Immature Gran % (Auto) 0.4 % 12/20/21 10:49 Neut % (Auto) 75.4 % 12/20/21 10:49 Lymph % (Auto) 14.4 % 12/20/21 10:49 [place] % (Auto) 8.9 % 12/20/21 10:49 Eos % (Auto) 0.3 % 12/20/21 10:49 Baso % (Auto) 0.6 % 12/20/21 10:49 Neut # (Auto) 5.23 K/uL (1.4-6.5) 12/20/21 10:49 Lymph # (Auto) 1.00 K/uL (1.2-3.4) L 12/20/21 10:49 [place] # (Auto) 0.62 K/uL (0.24-0.82) 12/20/21 10:49 Eos # (Auto) 0.02 K/uL (0-0.50) 12/20/21 10:49 Baso # (Auto) 0.04 K/uL (0-0.2) 12/20/21 10:49 Immature Gran # (Auto) 0.03 K/uL (0.00-0.02) H 12/20/21 10:49 Peripher Smr Path Cons Cancelled 12/20/21 10:49 D-Dimer 1160 ug/L FEU (0-500) H* 12/20/21 19:09 Sodium 132 mmol/L (136-145) L 12/25/21 05:36 Potassium 4.4 mmol/L (3.5-5.1) 12/25/21 05:36 Chloride 98 mmol/L (98-107) 12/25/21 05:36 Carbon Dioxide 28 mmol/L (21-32) 12/25/21 05:36 Anion Gap 6 (3-11) 12/25/21 05:36 BUN 36 mg/dl (6-23) H 12/25/21 05:36 Creatinine 0.94 mg/dl (0.6-1.2) 12/25/21 05:36 Est Cr Clr Drug Dosing 38.4 ml/min 12/25/21 05:36 Est GFR ( Amer) 65.9 ml/min 12/25/21 05:36 Est GFR (Non-Af Amer) 56.9 ml/min 12/25/21 05:36 BUN/Creatinine Ratio 38.3 (10-20) H 12/25/21 05:36 Glucose 107 mg/dl (70-99(Fasting)) H 12/25/21 05:36 Osmolality 271 mOsm/kg (280-300) L 12/22/21 08:18 Calcium 9.6 mg/dl (8.5-10.1) 12/25/21 05:36 Phosphorus 3.8 mg/dl (2.5-4.9) 12/24/21 06:39 Magnesium 2.2 mg/dl (1.7-2.4) 12/25/21 05:36 Total Bilirubin 0.8 mg/dl (0.2-1.0) 12/20/21 10:49 AST 13 U/L (13-39) 12/20/21 10:49 ALT 5 U/L (7-52) L 12/20/21 10:49 Alkaline Phosphatase 86 U/L (34-104) 12/20/21 10:49 Troponin I High Sens 10.8 pg/ml (0-14) 12/20/21 10:49 B-Natriuretic Peptide 129 pg/ml (0-100) H 12/20/21 11:06 Total Protein 7.2 gm/dl (6.0-8.3) 12/20/21 10:49 Albumin 4.2 gm/dl (3.4-5.0) 12/20/21 10:49 Globulin 3.0 gm/dl (2.5-4.0) 12/20/21 10:49 Albumin/Globulin Ratio 1.4 (0.9-2) 12/20/21 10:49 TSH 0.643 uIu/ml (0.300-4.500) 12/22/21 08:18 Urine Color Yellow 12/20/21 11:32 Urine Appearance Clear (Clear) 12/20/21 11:32 Urine pH 6.5 (4.5-7.5) 12/20/21 11:32 Ur Specific [place] 1.008 (1.000-1.030) 12/20/21 11:32 Urine Protein Negative (Negative) 12/20/21 11:32 Urine Glucose (UA) Negative (Negative) 12/20/21 11:32 Urine Ketones Trace (Negative) H 12/20/21 11:32 Urine Blood Negative (Negative) 12/20/21 11:32 Urine Nitrite Positive (Negative) A 12/20/21 11:32 Urine Bilirubin Negative (Negative) 12/20/21 11:32 Urine Urobilinogen Negative (Negative) 12/20/21 11:32 Ur Leukocyte Esterase 2+ (Negative) H 12/20/21 11:32 Urine WBC (Auto) 5-10 /hpf (0-5) H 12/20/21 11:32 Urine RBC (Auto) 0-4 /hpf (0-4) 12/20/21 11:32 U Hyaline Cast (Auto) 1-5 /lpf (0-5) 12/20/21 11:32 U Epithel Cells (Auto) >30 /lpf (0-5) H 12/20/21 11:32 Urine Bacteria (Auto) 4+ (Negative) H 12/20/21 11:32 Urine Osmolality 361 mOsm/kg (500-800) L 12/22/21 05:45 Ur Random Sodium 95 mmol/L 12/22/21 05:45 Anaplasma Smear See Comment 12/20/21 10:49 A. phagocytophilum DNA Negative (Negative) 12/20/21 10:49 Babesia Smear See Comment 12/20/21 10:49 Lyme Disease IgG Ab Negative (Negative) 12/20/21 10:49 Lyme Disease IgM Ab Negative (Negative) 12/20/21 10:49 SARS-CoV-2, RNA, NAAT NEGATIVE (NEGATIVE) 12/25/21 10:00 Impressions Chest CTA 12/20/21 20:18 CT ANGIOGRAM OF THE CHEST CLINICAL HISTORY: Dyspnea. COMPARISON STUDY: Chest x-ray dated 12/20/2021. TECHNIQUE: Following the IV administration of 115 cc of Optiray 320, CT angiogram of the chest was performed from the upper abdomen to the thoracic inlet utilizing the pulmonary embolus protocol. Images are reviewed in the axial, sagittal, and coronal planes. 3-D MIPS images are created and assessed. IV contrast was administered without complication. A dose lowering technique was utilized adhering to the principles of ALARA. The examination is compromised by motion artifact. CT DOSE: 400.52 mGy.cm FINDINGS: Thyroid: The thyroid gland is enlarged and heterogeneous fibroglandular. Thoracic aorta: There is atherosclerotic calcification of the thoracic aorta, which is normal in caliber and demonstrates standard 3-vessel arch anatomy. No dissection is seen. Pulmonary vasculature: The pulmonary trunk is normal in caliber. Apparent linear filling defect within the left upper lobe pulmonary artery seen on image #177 is likely artifact. There are no filling defects identified in main, lobar, or proximal segmental pulmonary branches typical for pulmonary embolus. Evaluation of the peripheral vessels is compromised by motion artifact. Heart: The heart is top normal in size and without pericardial effusion. The coronary arteries are densely calcified. Lungs and pleural spaces: Evaluation of the lung parenchyma is degraded by motion artifact PA there is no airspace consolidation typical for pneumonia or pleural effusion. The trachea and central airways are clear. Mediastinum: There is no mediastinal lymphadenopathy. The examination is compromised by motion artifact. Dilcia: Clear. Axillae: There is no axillary lymphadenopathy. Upper abdomen: There is a large calcified gallstone. Diverticula are noted in the partially imaged left colon. Skeletal structures: The skeletal structures are osteopenic. Degenerative change and kyphoscoliosis is noted in the thoracic spine. No lytic or blastic bony lesions are seen. IMPRESSION: 1 Motion compromised examination. 2. There is no evidence of pulmonary embolus in the main, lobar, or proximal segmental pulmonary arteries. Evaluation of the peripheral branches is compromised by motion artifact. 3. There is no airspace consolidation or pleural effusion. 4. Cholelithiasis. 5. Additional findings as above. ACT 112: Negative or not required by law. Electronically signed by: Walt Weir M.D. 12/21/2021 9:52 AM Chest X-Ray 12/22/21 10:06 XR chest 1V portable HISTORY: Shortness of breath. COMPARISON: Chest 12/20/2021. FINDINGS: No pneumothorax. No pleural effusions. Moderate S-shaped scoliosis of the thoracolumbar spine again noted. Calcifications within the aortic knob. The heart is borderline enlarged. This remains unchanged. No new focal lung consolidations to suggest pneumonia. No evidence for pulmonary edema. Advanced degenerative changes within the right shoulder. IMPRESSION: No significant change compared to the prior study. No acute process. ACT 112: Negative or not required by law. Electronically signed by: Curtis Alcantar M.D. 12/22/2021 11:03 AM Hospital Course (1) Hyponatremia: Patient is an 81 yr female with H/O Renovascular hypertension, dyslipidemia, neuropathy and other medical problems as below who presents with fatigue, generalized weakness and nausea for the past 4 days and was found to have hyponatremia and UTI. 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 Monitor sodium level: 121>125>126->130->135->132 Encourage increased food/protein in diet- continue to work with dietitian for higher solute diet Urea discontinued due to intolerance S/p iv lasix per nephro and changed to torsemide today per nephro Recommendations per nephro as below: -do not resume lisinopril at d/c -torsemide 10 mg daily -potassium 20 mEq daily -fluid limit 1.5L daily -encourage protein intake -bmp on 12/29 and weekly x 4 to be ordered by nephro RN/faxed [place] [facility] -pt needs HOSPITAL DISCHARGE appt pls in about 4 wks w/ G nephro in [facility] or [place] (2) Urinary tract infection: Urine culture growing E. coli, pansensitive S/p rocephin and changed to macrobid 12/23- continue for 5 more days to complete antibiotic course (3) Shortness of breath: Resolved. CT chest with no PE or PNA. Elevated D dimer. Saturating well in room air. No respiratory issues currently. (4) Renovascular hypertension: BP stable off of lisinopril and discontinued per nephro (5) Neuropathy: Previously on Lyrica and Cymbalta, but both have been discontinued due to side effects. Stable. Fibronodular thyroid- Incidental finding on CT CT scan showed enlarged and heterogeneous fibroglandular TSH normal Recommended follow up with PCP with possible endo referral for further evaluation if needed Seen by PT. Recommended rehab. Discharged to [facility] as her preference. Stable and comfortable for discharge. Total Time Total Time Spent Total Time Spent (In Minutes): 35 Discharge Plan Discharge Items Patient Disposition: Transfer Half-Way Fac Reason For Visit: UTI, HYPONATREMIA Discharge Diagnosis: Hyponatremia, UTI Activity: Resume your previous activity Non-emergency contact: Primary Care Provider Call non-emergency contact if: you have any medication questions and your symptoms worsen Follow-up/Referrals: Woodrow Luna DO [Primary Care Provider] - Diet: Regular Addtl Attending Provider Instructions: - Discontinue lisinopril at discharge - Discontinue cymbalta and lyrica due to reported side effects - Continue macrobid twice daily for 3 more days for urine infection - Start torsemide 10 mg daily -Start potassium 20 mEq daily - Restrict fluid intake to not more than 1.5L daily - Encourage protein intake - Recommend repeat blood work (BMP) on 12/29 and weekly afterwards- this will be ordered by nephro RN/faxed to [facility] - Follow up with nephrology in 4 weeks with [facility] neph[facility] in [facility] or [place] - Your CT showed enlarged thyroid. Recommend follow up with family doctor for the same along with repeat thyroid function test in about 4-6 weeks. Pending Studies at Discharge: No Stand-Alone Forms: My [facility] Skilled Items Patient informed of condition?: Yes DNR: No Discharge Level of Care: Skilled Communicable Disease: No Discharge Prognosis: Stable Lines: None Urinary Catheter: No Medications and DC Order Prescriptions: New nitrofurantoin monohyd/m-cryst 100 mg Capsule 100 mg PO BID Qty: 6 0RF potassium chloride 20 mEq Tablet,Er Particles/Crystals 20 meq PO QAM Qty: 30 0RF torsemide 10 mg Tablet 10 mg PO QAM Qty: 30 0RF Continued omeprazole 20 mg capsule,delayed release(DR/EC) 20 mg PO DAILY dorzolamide-timolol 22.3-6.8 mg/mL Drops 1 drp OPHTHALMIC (EYE) [facility] dicyclomine 10 mg capsule 10 mg PO QID PRN (Reason: Abdominal Discomfort) capsaicin 0.1 % Cream 1 applic TOPICAL BID Rx Instructions: do not wash area for at least 30 min after application zinc 25 mg Tablet 25 mg PO DAILY Discontinued lisinopril 10 mg tablet 10 mg PO DAILY furosemide 20 mg tablet 20 mg PO DAILY PRN (Reason: Edema) Discharge Orders: Discharge Order (Routine); Ordered 12/25/21 Ordered By: Venkatesh Wisdom Admission Data Admit Date/Time: 12/20/21 12:56 Attending Provider: Venkatesh Wisdom Admit Provider: Homar Baer Primary Care Provider: Woodrow Luna Other Providers: Homar Baer ; Nikhil Gomez Other Interventions: Discharge Summary Assessment (RN) Last Done: 12/25/21 10:54
== END 2021-12-25 13:06 | DRG 644 ==
LOC: ED 10:12 → SUATTDRO 12:56 → 2S 12:56
DX: G62.9 Polyneuropathy, unspecified; Z88.1 Allergy status to other antibiotic agents; N39.0 Urinary tract infection, site not specified; Z87.891 Personal history of nicotine dependence; K80.20 Calculus of gallbladder without cholecystitis without obstruction; E22.2 Syndrome of inappropriate secretion of antidiuretic hormone; Z88.2 Allergy status to sulfonamides; Z82.49 Family history of ischemic heart disease and other diseases of the circulatory system; B96.20 Unspecified Escherichia coli [E. coli] as the cause of diseases classified elsewhere